=== PATIENT | male | born 1985 | race Two or more races ===

== ENCOUNTER 2019-02-17 20:44 | Emergency (ER) | payer SELFPAY ==
[~2019-02-17] VITALS: Ht 170.2 cm; Wt 82.1 kg
[2019-02-17] MEDS ORDERED: MORPHINE SULFATE INJ 4 MG/ML DISP.SYRIN ONE ×2 (20:50→21:17)
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
[2019-02-17] MEDS ORDERED: MORPHINE SULFATE INJ 2 MG/ML DISP.SYRIN ONE (20:59)
[2019-02-17] MEDS ORDERED: TDAP [DIPH/PERTUSSIS/TET] 0.5 ML VIAL IM ONE ×2 (20:59→21:00)
[2019-02-17] MEDS ORDERED: MORPHINE SULFATE INJ 2 MG/ML DISP.SYRIN IV ONE ×2 (21:00→21:30)
[2019-02-17 21:08] LABS: BASOPHILS # (AUTO) 0.1 /CMM (0.0-0.2); BASOPHILS % (AUTO) 0.8 % (0.0-2.0); EOSINOPHILS % (AUTO) 5.5 % (0.0-6.0); HEMATOCRIT 43 % (39-51); HEMOGLOBIN 14.4 g/dL (13.5-17.5); LYMPHOCYTES # (AUTO) 3.1 /CMM (0.8-4.8); LYMPHOCYTES % (AUTO) 33.2 % (20.0-44.0); MEAN CORPUSCULAR HGB CONC 33 g/dl (31.0-36.0); MEAN CORPUSCULAR VOLUME 100 fL (80-96); MONOCYTES # (AUTO) 0.7 /CMM (0.1-1.30); MONOCYTES % (AUTO) 7.3 % (2.0-12.0); NEUTROPHILS % (AUTO) 53.2 % (43.0-81.0); PLATELET COUNT (AUTO) 186 /CMM (150-450); RED BLOOD CELL COUNT(AUTO) 4.32 MIL/uL (4.5-6.0); WHITE BLOOD COUNT (AUTO) 9.3 K/uL (4.3-11.0)
[2019-02-17 21:15] LABS: CREATININE 1.1 mg/dL (0.6-1.3); POTASSIUM 3.3 mmol/L (3.5-5.1)
[2019-02-17] MEDS ORDERED: LIDOCAINE 1%-EPI 1:100,000 20 ML VIAL ONE (21:49)
[2019-02-17] MEDS ORDERED: HYDROMORPHONE 1 MG/1 ML DISP.SYRIN ONE (22:03)
--- NOTE | 2019-02-17 22:05 | NUR ---
SKIP OPERATOR AT BEDSIDE FOR WOUND CARE
[2019-02-17] MEDS ORDERED: LORAZEPAM INJ 2 MG/ML VIAL ONE (22:08)
--- NOTE | 2019-02-17 22:25 | NUR ---
BECKY MILLER AT BEDSIDE FOR LAC CARE.
[2019-02-17] MEDS ORDERED: LORAZEPAM INJ 2 MG/ML VIAL IV ONE (22:30)
[2019-02-17] MEDS ORDERED: HYDROMORPHONE INJ 0.5 MG/0.5 ML SYRINGE IV ONE (22:30)
[2019-02-17] MEDS ORDERED: CEFAZOLIN 1 GM in IV D5W 50 ML IV ONE (23:00)
[2019-02-17] MEDS ORDERED: CEFTRIAXONE 1GM BAG (ER ONLY) 50 ML IV ONE (23:08)
[2019-02-17] MEDS ORDERED: CEFTRIAXONE 1GM BAG (ER ONLY) 1 GM/50 ML PIGGYBACK IV ONE (23:30)
[2019-02-18] MEDS ORDERED: POTASSIUM CHLORIDE 20 MEQ TAB.PRT.SR PO ONE ×2 (00:01)
[2019-02-18 00:53] VITALS: BP 122/74
== END 2019-02-18 00:53 | disposition home or self-care (01) ==
LOC: ER 20:44
DX: S51.821A Laceration with foreign body of right forearm, initial encounter (principal); E87.6 Hypokalemia; D75.89 Other specified diseases of blood and blood-forming organs; R40.4 Transient alteration of awareness; F41.9 Anxiety disorder, unspecified; F10.10 Alcohol abuse, uncomplicated; Y90.9 Presence of alcohol in blood, level not specified; Z23 Encounter for immunization; W22.8XXA Striking against or struck by other objects, initial encounter; Y93.89 Activity, other specified; Y92.89 Other specified places as the place of occurrence of the external cause; Y99.8 Other external cause status
CPT/HCPCS: 12032; 36415; 73090 ×2; 80048; 85025; 90471; 90715; 96365; 96375; 99285; A6403; J0690; J0696; J1170; J2060; J2270 ×3; J3490; J7060